=== PATIENT | male | born 1965 | race Caucasian/White ===

== ENCOUNTER 2017-02-14 14:25 | Day surgery (SDC) | payer BC ==
[~2017-02-14] VITALS: Ht 177.8 cm; Wt 121.9 kg
--- NOTE | ~2017-02-14 | OR ---
PATIENT'S NAME: FLORENTINO SIBLEY [facility] AGE: 52 Y [address] ROOM: [place], [place] [address] [place] [facility] [place]: 02/14/2017 OR/Procedure Report DISCHARGE DATE: 02/14/2017 FAMILY PHYSICIAN: Yunior Strickland MD ATTENDING PHYSICIAN: Florentino Carrillo SURGEON: Florentino Carrillo MD TRUST MANAGER ASSISTANT: DATE OF PROCEDURE: 02/14/2017 PREOPERATIVE DIAGNOSIS: Bilateral nephrolithiasis with a 7 x 4 mm left proximal ureteral calculus. POSTOPERATIVE DIAGNOSIS: Bilateral nephrolithiasis with a 7 x 4 mm left proximal ureteral calculus. PROCEDURE: 1. Cystoscopy and left stone manipulation. 2. Left stent placement. 3. Left ESWL. ANESTHESIA: Sedation. INDICATION: This is a 52-year-old gentleman with a past history of stone disease. He developed significant pain symptoms the last weekend. He had a CT scan done yesterday with increasing pain. He had small bilateral stones and a 7 x 4 mm obstructing stone in the left proximal third. He could not be treated expediently, so he called and requested intervention here. Having been through both lithotripsy and extractions and stenting in the past, he understood the plan as well as the indications, risks, and benefits. The small stone is where it was on the CT scan, we will plan on bumping it back in renal pelvis, placing a stent, and proceeding with ESWL. If it has moved distally, we will approach it ureteroscopically. DESCRIPTION OF PROCEDURE: Having obtained his informed consent, the patient was taken to the cystoscopy suite. He was prepped and draped sterilely and in lithotomy position. IV sedation was administered. A 21-Burmese cystoscope was assembled and guided into the urethra. The course of the urethra was unremarkable. Bladder itself demonstrates no tumors, stones, or foreign bodies. Bladder examination was confirmed with the 70-degree lens. Under fluoroscopy, we could easily appreciate the stone. It has not moved. I placed him in a steep Trendelenburg position. I passed an open-ended catheter to the level of the stone, and using saline irrigation, we washed the stone back into the renal pelvis. Through that catheter, I passed a guidewire. Over that guidewire, I passed a 4.8 multi-length stent. We have a nice level PATIENT'S NAME: FLORENTINO SIBLEY [facility] AGE: 52 Y [address] ROOM: [place] [id number] [place]: [facility] [place] DATE: 02/14/2017 OR/Procedure Report DISCHARGE DATE: 02/14/2017 FAMILY PHYSICIAN: Yunior Strickland MD ATTENDING PHYSICIAN: Florentino Carrillo of placement cystoscopically and fluoroscopically. The patient was now moved to the lithotripsy suite. The dominant stone was brought into the second focal point of the ellipsoid and fragmentation was begun. We started at 14 kV and worked up to a maximum of 20 kV. The stones appeared to fragment nicely. At 2000 impulses, I can no longer appreciate the main stone. We can see the two smaller stones noted on the CT scan. We moved out and gave them an additional 500 impulses of 18 kV breaking them up nicely. The patient tolerated the procedures well. Blood loss was negligible. No specimens were sent. The patient returned to the outpatient recovery awake and in stable condition. FLORENTINO CARRILLO MD [facility]/modl /[id number] CC: Yunior Strickland MD d: 02/15/17 0222 t: 02/24/17 0915, OPERATIVE SUMMARY
[~2017-02-14 14:25] MED LIST: ALEVE220 MG PO; CENTRUM MEN'S1 EACH PO; LIPITOR20 M1 PO; NORCO 5-325 TA1 EACH PO
== END 2017-02-14 20:20 | disposition disaster alternative care site (69) ==
LOC: GSDC 14:25
PROC: 0T778DZ Dilation of Left Ureter with Intraluminal Device, Via Natural or Artificial Opening Endoscopic (ICD-10-PCS; principal; 2017-02-14)
PROC: 0TF4XZZ Fragmentation in Left Kidney Pelvis, External Approach (ICD-10-PCS; 2017-02-14)
DX: N20.2 Calculus of kidney with calculus of ureter (principal); E78.00 Pure hypercholesterolemia, unspecified; Z90.49 Acquired absence of other specified parts of digestive tract; Z98.890 Other specified postprocedural states
CPT/HCPCS: C1769; C2617; J1956; J2001; J7120